=== PATIENT | female | born 1975 | race Caucasian/White ===

== ENCOUNTER → 2020-06-19 08:44 | Outpatient (BNVA) | payer BC, SELFPAY | PROVIDERS: Family Provider Family Medicine; PCP Family Medicine; Visit Provider Obstetrics & Gynecology | DX: D25.9 Leiomyoma of uterus, unspecified (principal); N83.201 Unspecified ovarian cyst, right side | CPT/HCPCS: 76830 ==

== ENCOUNTER 2020-06-23 09:18 | Outpatient (CLI) | payer BC, SELFPAY ==
--- NOTE | 2020-06-23 09:19 | MM_ITS ---
WS: [id number] Bilateral screening digital mammogram, 06/23/2020 Clinical Data: SCREENING Comparison: None. Findings: The breast parenchymal pattern shows heterogeneous density No spiculated masses or clustered calcific ations are seen. There are no secondary signs of carcinoma. MM/[id number] Impression: 1. Negative bilateral mammogram with no prior exam for review. 2. Recommend annual screening mammograms. BIRADS: 1-Negative FOLLOW UP: 1 Year Follow-up The CAD cargo checker was used.
== END 2020-06-23 09:19 | disposition home or self-care (01) ==
LOC: RADSHAW 09:18
PROVIDERS: PCP Family Medicine; Visit Provider Family Medicine
DX: Z12.31 Encounter for screening mammogram for malignant neoplasm of breast (principal)
CPT/HCPCS: 77067

== ENCOUNTER → 2020-07-06 16:25 | Outpatient (BNVA) | payer BC, SELFPAY | PROVIDERS: PCP Family Medicine; Visit Provider Obstetrics & Gynecology | DX: D25.1 Intramural leiomyoma of uterus (principal); N92.0 Excessive and frequent menstruation with regular cycle; N93.9 Abnormal uterine and vaginal bleeding, unspecified | CPT/HCPCS: 87635 ==

== ENCOUNTER 2020-07-12 09:09 | Observation (INO) | payer BC, SELFPAY ==
[2020-07-10 11:37] VITALS: BMI 33.0
--- NOTE | 2020-07-10 12:05 | P.ANESASSM_ITS ---
Pre-Anesthetic Assessment Pre-Anesthetic Assessment: Height/Weight: Height 1.78 m Weight 104.326 kg Preop Diagnosis: Abnormal uterine bleeding, uterine leiomyoma Proposed Procedure: Operation Date: 07/12/20 07:00 Proposed Procedures p Total Vaginal Hysterectomy 58426 N92.0 N93.9(Not Applicable) - Eliseo reyes MD Familial anesthetic complications: none Social: Social History: No alcohol and No tobacco Exam: Pre-Anes Outpt Exam: alert, oriented x 3, clear to auscultation bilaterally and regular rate & rhythm Airway: Cervical ROM: WNL MP: 3 Dentition: Other (misisng) CV/HEM: CV/HEM: HTN Metabolic: Metabolic: DM Anesthetic Plan: ASA status: 2 Anesthesia: General Risk of > 500 ml blood loss (7ml/kg in children): No PFSH Anesthesia PFSH: Surgical History H/O knee surgery S/P section Family History Grandmother Diabetes Grandfather Diabetes Hypertension Denies family history of Colon cancer Ovarian cancer Clotting disorder Heart disease Hypercholesteremia Breast cancer Bleeding disorder Uterine cancer Thyroid disease Stroke Social History (Updated 07/10/20 @ 08:40 by Denisse Saucedo RN) Smoking and tobacco status: never smoked Alcohol intake: current Alcohol intake frequency: holidays/special occasions only Alcohol type: wine and hard liquor Substance/Drug Use: never Female Reproductive History: Date of last menstrual period: 06/30/20 Data Anesthesia Cardiac Studies: No Data to Display
[2020-07-10 12:17] LABS: Basophils # 0.1 10^3/uL (0.0-0.1); Basophils % 0.8 %; Eosinophils # 0.2 10^3/uL (0.0-0.8); Eosinophils % 2.5 %; Hematocrit 43.1 % (37.0-47.0); Hemoglobin 13.9 g/dL (11.5-15.3); Lymphocytes # 1.6 10^3/uL (0.8-4.8); Lymphocytes % 26.5 %; Mean Corpuscular HGB Conc 32.3 g/dL (30.0-36.0); Mean Corpuscular Hemoglobin 27.4 pg (28.0-34.0); Mean Corpuscular Volume 84.8 fL (81-99); Mean Platelet Volume 11.2 fL (7.4-10.4); Monocytes # 0.3 10^3/uL (0.2-0.9); Monocytes % 5.2 %; Neutrophils # 3.87 10^3/uL (1.8-7.7); Neutrophils % 64.7 %; Nucleated Red Blood Cells % 0 %; Platelet Count 337 10^3/cmm (130-400); Red Blood Count 5.08 10^6/uL (4.1-5.3); Red Cell Distribution Width 12.5 % (12.1-15.1)
[2020-07-10 12:22] LABS: Add Urine Microscopic? NO; Charge for UA Resulting for Rev
[2020-07-10 12:40] LABS: Alanine Aminotransferase 10 U/L (0-33); Albumin Level 4.1 g/dL (3.5-5.2); Alkaline Phosphatase 67 IU/L (35-105); Anion Gap 11.5 (5-19); Aspartate Amino Transferase 17 U/L (0-32); Blood Urea Nitrogen 11 mg/dL (6-20); Calcium 9.7 mg/dL (8.5-10.5); Carbon Dioxide 25 mmol/L (22-29); Chloride 105 mmol/L (98-107); Globulin 2.4 g/dL (1.3-4.6); Glomerular Filtration Rate 108.6 mL/min (90-130); Glucose 173 mg/dL (65-115); Osmolality Calculated 290 mOsm/kg (285-295); Potassium 3.5 mmol/L (3.5-5.1); Sodium 138 mmol/L (136-145); Total Bilirubin 0.4 mg/dL (0.15-1.2); Total Protein 6.5 g/dL (6.6-8.7)
[2020-07-10 12:41] LABS: Urine Appearance Clear (CLEAR); Urine Color Yellow (Yellow)
[2020-07-10 12:42] LABS: Bilirubin Urine Neg (Negative); Blood Urine Neg (Negative); Glucose Urine UA 4+ (Normal); Ketones Urine 1+ (Negative); Leukocyte Esterase Urine Negative (Negative); Nitrate Urine Negative (Negative); Protein Urine Neg (Negative); Specific Gravity, Urine 1.015 (1.005-1.030); Urobilinogen Urine Norm (Negative); pH Urine 5 (5-7)
[2020-07-10 15:35] LABS: OR HCG Qualitative Urine Negative (Negative)
[2020-07-12] VITALS (14 sets, daily range): BP systolic 131–176; BP diastolic 51–92; PULSE 55–80; RESP 12–18; TEMP 36.2–36.8; O2SAT 94–100
[2020-07-12] MEDS: sodium chloride 0.9% 500 ML IV (06:41)
[2020-07-12] MEDS: vancomycin 1,000 MG in sodium chloride 0.9% 250 ML 250 MG IV (06:42)
[2020-07-12] MEDS: sodium chloride 0.9% 1,000 ML 30 ML IV (06:43)
[2020-07-12] MEDS: scopolamine 1.5 Patch 1 PATCH TRANSDERMA (06:43)
--- NOTE | 2020-07-12 06:48 | P.ANESUD_ITS ---
Pre-Anesthetic Update Pre-Anesthetic Assessment: Date of Surgery/Procedure: 07/12/20 Preop Elvia gnosis: Abnormal uterine bleeding, uterine leiomyoma Proposed Procedure: Operation Date: 07/12/20 07:00 Proposed Procedures p Total Vaginal Hysterectomy 44286 N92.0 N93.9(Not Applicable) - Eliseo Adam MD Any changes to Pre-Anesthetic Assessment?: No Last Intake: Intake Last Liquid Date 07/11/20 Last Liquid Time 20:00 Last Solid Date 07/11/20 Last Solid Time 20:00 Labs Last 48hrs: Laboratory Results - last 48 hr 07/10/20 07/10/20 07/10/20 11:40 11:40 11:40 WBC 6.0 RBC 5.08 Hgb 13.9 Hct 43.1 MCV 84.8 MCH 27.4 L MCHC 32.3 RDW 12.5 Plt Count 337 MPV 11.2 H Neut % (Auto) 64.7 Lymph % (Auto) 26.5 Brantley % (Auto) 5.2 Eos % (Auto) 2.5 Baso % (Auto) 0.8 Neut # (Auto) 3.87 Lymph # (Auto) 1.6 Brantley # (Auto) 0.3 Eos # (Auto) 0.2 Baso # (Auto) 0.1 Nucleated RBC % (a uto) 0 Nucleated RBCs # 0.0 Sodium 138 Potassium 3.5 Chloride 105 Carbon Dioxide 25 Anion Gap 11.5 BUN 11 Creatinine 0.6 GFR Calculation 108.6 Glucose 173 H Calculated Osmolal ity 290 Calcium 9.7 Total Bilirubin 0.4 AST 17 ALT 10 Alkaline Phosphata se 67 Total Protein 6.5 L Albumin 4.1 Globulin 2.4 Urine Color Urine Appearance Urine pH Ur Specific Gravit y Urine Protein Urine Glucose (UA) Urine Ketones Urine Blood Urine Nitrate Urine Bilirubin Urine Urobilinogen Ur Leukocyte Latha ase Urine HCG, Qual Blood Type A Positive Rho(D) Type Positive / 4+ Antibody Screen Negative 07/10/20 07/10/20 11:50 11:50 WBC RBC Hgb Hct MCV MCH MCHC RDW Plt Count MPV Neut % (Auto) Lymph % (Auto) Brantley % (Auto) Eos % (Auto) Baso % (Auto) Neut # (Auto) Lymph # (Auto) Brantley # (Auto) Eos # (Auto) Baso # (Auto) Nucleated RBC % (a uto) Nucleated RBCs # Sodium Potassium Chloride Carbon Dioxide Anion Gap BUN Creatinine GFR Calculation Glucose Calculated Osmolal ity Calcium Total Bilirubin AST ALT Alkaline Phosphata se Total Protein Albumin Globulin Urine Color Yellow Urine Appearance Clear Urine pH 5 Ur Specific Gravit y 1.015 Urine Protein Neg Urine Glucose (UA) 4+ H Urine Ketones 1+ H Urine Blood Neg Urine Nitrate Negative Urine Bilirubin Neg Urine Urobilinogen Norm Ur Leukocyte Latha ase Negative Urine HCG, Qual Negative Blood Type Rho(D) Type Antibody Screen Vitals: Temperature 97.8 F 07/12/20 06:44 Temperature Source Temporal Artery S can 07/12/20 06:44 Pulse Rate 55 L 07/12/20 06:44 Respiratory Rate 18 07/12/20 06:44 Blood Pressure 176/92 07/12/20 06:44 Blood Pressure Odalys n 120 07/12/20 06:44 Pulse Oximetry 97 07/12/20 06:44 Oxygen Delivery Me thod 07/12/20 06:44 Exam: Pre-Anes Outpt Exam: alert, oriented x 3, clear to auscultation bilaterally and regular rate & rhythm Cardiac Studies: No Data to Display
[2020-07-12 06:51] LABS: Glucose Point of Care 121 mg/dL (70-110)
--- NOTE | 2020-07-12 06:52 | W.PM.OPSUD ---
Surgery/Procedure H&P Update DATE OF PROCEDURE: July 12, 2020 DATE H&P PERFORMED: 07/10/20 H&P UPDATE INFORMATION: I have reviewed H&P completed within last 30 days, I have examined patient prior to procedure and No changes to prior documentation PREOP DIAGNOSIS: Abnormal uterine bleeding, uterine leiomyoma PLANNED PROCEDURE: Operation Date: 07/12/20 07:00 Proposed Procedures p Total Vaginal Hysterectomy 01799 N92.0 N93.9(Not Applicable) - lEiseo Adam MD
[2020-07-12] MEDS: levofloxacin-dextrose 5 % 500 MG/100 ML PREMIX 100 MG IV (06:54)
[2020-07-12 07:03] LABS: OR HCG Qualitative Urine Negative (Negative)
--- NOTE | 2020-07-12 08:46 | P.OP_ITS ---
Operative Report Date of procedure: July 12, 2020 Pre-op Diagnosis: Abnormal uterine bleeding, uterine leiomyoma Procedure Done: Total vaginal hysterectomy. Cystoscopy Specimens removed/disposition: Uterus Pathology: Uterus Surgeon: Eliseo Adam MD Anesthesia: General Estimated blood loss (mL): 50 IV fluids (mL): 700 Urine output (mL): 300 Complications: None Findings: Enlarged irregular uterus with large posterior fibroid Condition: stable Disposition: PACU Brief History: 45-year-old female with uterine fibroid Procedure: After informed consent and risks, benefits, indications and alternatives reviewed with the patient was taken to the operating room. The patient was placed in dorsal lithotomy position prepped, and draped in the usual sterile fashion. The pre-procedure timeout verifying the correct patient, procedure, site and side, could not requirements was performed and acknowledge by the OR team. A Dubon catheter was placed. A Bookwalter vaginal retractor wa s placed into the vagina in usual manner visualize the cervix. Cervix was grasped with a single tooth tenaculum and circumferentially infiltrated with Lige sure 1% Xylocaine with epinephrine. Then cervix was circumferentially incised with bovie and the bladder was dissected off the pubovesical cervical fascia anteriorly with a sponge stick and Metzenbaum scissors. The anterior peritoneal reflection was identified and the anterior cul-de-sac was entered sharply with Metzenbaum scissors. The same procedure was performed posteriorly and a posterior colpotomy was made through the posterior cul-de-sac space without difficulty and the posterior blade of the Bookwalter vaginal retractor was advanced posteriorly into the cul-de-sac. At this time, the left and right uterosacral ligaments were isolated and ligated with 0 Vicryl. The Enseal device was placed over the uterosacral ligaments on either side and was then used in a serial fashion up through the cardinal ligaments bilaterally cross-clamped, cut, and sealed with the Enseal device. Finally, the uterine arteries were cross-clamped, cut, sealed and ligated with the Enseal device. Hemostasis was assured. The broad ligaments were then serially clamped, sealed and cut with the Enseal device on both sides. Excellent hemostasis was visualized. Both cornua were clamped, sealed and cut with the Enseal device. Then the pedicles were then suture ligated with excellent hemostasis. The uterus was excised and submitted for pathologic evaluation. No other abnormalities were noted in the pelvic cavity. The patient was given indigo carmine IV. the peritoneum was then closed in a pursestring fashion with 0 Vicryl suture. The vaginal cuff angles were closed with [id number] #0 Vicryl suture on both sides and transfixed with the ipsilateral cardinal and uterosacral ligaments. The remainder of the vaginal cuff was closed with #0 Vicryl in a running locked fashion. At this time, instruments were removed from the vagina at hemostasis assured. Then the Dubon catheter was removed and cystoscope was inserted. The bladder was filled with sterile water. Complete evaluation of the bladder mucosa was performed noting no lacerations, dimpling, tears, bleeding of the mucosa or muscular layers. Both ureteral orifices were identified. Prompt excretion of blue urine from both ureteral orifices was noted. Cystoscope was withdrawn. Dubon catheter was then placed yielding clear amelia urine. A vaginal packing with Premarin cream was placed and the patient was taken out of dorsal lithotomy position and awakened from the general anesthesia. The patient tolerated the procedure well and was taken to the PACU recovery room in a stable condition. Sponge, lap, needle and instruments counts were correct x3.
--- NOTE | 2020-07-12 09:01 | P.PCN_ITS ---
PACU note PACU note: VSS, Good respiratory effort, report to FLATWORK PRESSER Post-Anesthesia Exam: awake
--- NOTE | 2020-07-12 09:01 | PM.PACU ---
PACU note PACU note: VSS, Good respiratory effort, report to COMMUNITY PROGRAM ASSISTANT Post-Anesthesia Exam: awake
--- NOTE | 2020-07-12 10:02 | PC.NURSE ---
Patient arrived from PACU at 0930. Patient transferred herself to bed from [facility]. Patient reports no pain and oriented to room including call light. Patient instructed not to get out of bed without assistance.
[2020-07-12] MEDS: fluticasone nasal spray 16gm Btl 1 SPRAY INTRANASAL (10:26)
[2020-07-12] MEDS: metformin 500 mg Tablet PO ×2 (10:26→18:03)
[2020-07-12] MEDS: multivitamin therapeutic Tablet 1 TAB PO (10:27)
[2020-07-12] MEDS: fluoxetine 20 mg Capsule PO (10:27)
[2020-07-12] MEDS: docusate sodium 100 mg Capsule PO ×2 (10:27→18:03)
[2020-07-12] MEDS: dextrose 5%-lactated ringers 1,000 ML 125 ML IV ×2 (10:32→18:03)
--- NOTE | 2020-07-12 10:32 | PC.NURSE ---
Patient already took metoprolol this morning prior to surgery. Not given.
[2020-07-12] MEDS: ketorolac 30 mg/mL INJ IVP ×2 (14:33→21:17)
--- NOTE | 2020-07-12 15:49 | ANE.PACU2 ---
Inpatient post-anesthesia follow up: Airway intact: Yes Vital signs: Temperature 98.2 F Pulse Rate 76 Respiratory Rate 17 Blood Pressure 169/79 Pulse Oximetry 97 Oxygen Delivery Me thod Room Air Oxygen Flow Rate 2 Fraction of Inspir ed Oxygen Hydration adequate: Yes Nausea and vomiting: No Pain level: 3 Mental status: Baseline
[2020-07-12] MEDS: metoprolol tartrate 25 mg Tablet PO (21:17)
[2020-07-12] MEDS: atorvastatin 40 mg Tablet 20 MG PO (21:17)
[2020-07-13 04:30] VITALS: BP 150/86; PULSE 87; RESP 16; O2SAT 98
[2020-07-13 05:01] LABS: Hematocrit 41.1 % (37.0-47.0); Hemoglobin 13.1 g/dL (11.5-15.3); Mean Corpuscular HGB Conc 31.9 g/dL (30.0-36.0); Mean Corpuscular Hemoglobin 27.3 pg (28.0-34.0); Mean Corpuscular Volume 85.6 fL (81-99); Mean Platelet Volume 10.9 fL (7.4-10.4); Platelet Count 258 10^3/cmm (130-400); Red Cell Distribution Width 12.5 % (12.1-15.1); White Blood Count 8.6 10^3/uL (4.0-10.0)
[2020-07-13] MEDS: fluoxetine 20 mg Capsule PO (08:19)
[2020-07-13] MEDS: docusate sodium 100 mg Capsule PO (08:19)
[2020-07-13] MEDS: ibuprofen 800 mg tablet PO (08:19)
[2020-07-13] MEDS: multivitamin therapeutic Tablet 1 TAB PO (08:19)
[2020-07-13] MEDS: metformin 500 mg Tablet PO (08:19)
[2020-07-13] MEDS: metoprolol tartrate 25 mg Tablet PO (08:30)
[2020-07-13] MEDS: fluticasone nasal spray 16gm Btl 1 SPRAY INTRANASAL (08:30)
[2020-07-13 10:18] VITALS: BP 133/76; PULSE 66; RESP 14; TEMP 36.8; O2SAT 96
--- NOTE | 2020-07-13 12:15 | P.DS_ITS ---
Discharge Providers [facility] Date of Admission: 07/12/20 09:09 Date of Discharge: 07/13/20 Attending Provider at Admission: Eliseo Adam MD Attending Provider at Discharge: Eliseo Adam MD Primary Care Provider: Blayne Redman MD Reason for Visit Reason for Visit: menorrhagia Hospital Course Hospital Course Mrs. Bender 45-year-old female with a history of abnormal uterine bleeding unresponsive to medical management and uterine leiomyoma admitted for planned total vaginal hysterectomy. The procedure was performed without complication. Overnight observation was uneventful. She is afebrile and hemodynamically stable. Tolerating diet well. Ambulating without difficulty. Passing flatus. Physical Exam Narrative: EXAM NARRATIVE: GA: Alert and oriented ?3. HEENT: WNL. Heart: Regular rate and rhythm. Lungs: Clear to auscultation bilaterally. Abdomen: Bowel sounds present. FIELD MANAGER: No bleeding. Extremities: No edema, no cyanosis, no calves pain. Urinary Catheter Management^: Dubon: Cath Placed During This Visit: yes, but has since been removed by the nurse Reason for Continuing Indwelling Catheter: Decision to DC Catheter Urinary Catheter Date of Insertion: 07/12/20 Urinary Catheter Time of Insertion: 07:25 Date Urinary Catheter Removed: 07/13/20 Time Urinary Catheter Discontinued: 06:30 Discharge Data Data Completed and Pending: Pending at discharge Category Date Time Status Pathology: Surgic al [PTH] Routine Pth 07/12/20 09:00 Received Labs from last 24 hours 07/13/20 04:45 WBC 8.6 RBC 4.80 Hgb 13.1 Hct 41.1 MCV 85.6 MCH 27.3 L MCHC 31.9 RDW 12.5 Plt Count 258 MPV 10.9 H Vitals: Last Vital Signs Temp 98.3 F 07/13/20 10:18 Pulse 66 07/13/20 10:18 Resp 14 07/13/20 10:18 BP 133/76 07/13/20 10:18 Pulse Ox 96 07/13/20 10:18 Discharge Plan Discharge Patient Disposition: Home Condition: Stable Prescriptions: New hydrocodone-acetaminophen 5-325 mg tablet 1 tab PO Q4H PRN (Reason: pain) Qty: 30 RF: 0 ibuprofen 800 mg tablet 800 mg PO TID PRN (Reason: pain) Qty: 60 RF: 0 acetaminophen 325 mg capsule 325 mg PO Q4H PRN (Reason: fever or postoperative pain) Qty: 60 RF: 0 Continued metformin 1,000 mg tablet 500 mg PO BID RF: 0 fluticasone propionate 50 mcg/actuation spray,suspension 1 spray intranasal DAILY RF: 0 metoprolol tartrate 25 mg tablet 25 mg PO BID RF: 0 Jardiance 10 mg tablet 10 mg PO DAILY RF: 0 atorvastatin 10 mg tablet 10 mg PO DAILY RF: 0 fluoxetine 20 mg capsule 20 mg PO DAILY RF: 0 multivitamin Tablet 1 tab PO DAILY RF: 0 Discharge Orders: Discharge Order (Routine); Ordered 07/13/20 Ordered By: Eliseo Adam Referrals: Eliseo Adam MD [Physician] - 07/24/20 11:15 am (Initial post op visit - 07/24/2020 at 11:15 6 week post op visit - 08/21/2020 at 11:00) Discharge Diet: Usual diet Discharge Activity: Increase activity as tolerated Patient Instructions: Vaginal Hysterectomy (DC), OB Discharge Report Activity Restrictions/Additional Instructions: 1. Please call [facility] on next working day to make your post-operative appointment in 2 weeks. 2. Please stay home until you come back to the clinic on first post-operative check up. 3. Please follow instructions on your medications CAREFULLY. 4. If you have abdominal incision, do not cover it unless dressing is necessary because of drainage. OK to shower, but avoid bath. Leave steri-strips until they fall off. If they are still on one week after surgery, you may remove them. 5. If you had vaginal surgery or vaginal repair, Dr. Adam may instruct you to take SITZ bath. 6. Yellow, blood tinged odorous vaginal discharge is usually normal after hysterectomy or vaginal surgeries. 7. No sexual intercourse, tampons, or douches until you are completely released from the post-operative care. 8. Avoid constipation by eating right and maybe using some Metamucil or Milk of Magnesia. 9. All prescription refills are given during the working hours. Please do no wait till it runs out. Call the clinic at [phone] before your medication runs out. The clinic will get in touch with your doctor to prescribe medications if necessary. 10. Please remain within 40 mile radius from our hospital because emergencies do happen now and then during the post-operative period. 11. If you have stairs at home, take one step at a time slowly and minimize the number of trips. It helps to stay in one floor for the next few days. No lifting except what you can lift by one hand until you are released from the post-operative care. 12. Driving is discouraged until you are well healed. It may be 3-4 weeks before you feel strong enough to drive. You should be able to turn and look through the rear window without pain and you should be able to push the brake pedal very hard without pain before you drive. No fast rules, but SAFETY should be your primary concern. DO NOT drive if you are on sedating medications such as narcotics. 13. Call the clinic (during working hours) to make urgent appointment or go to the Emergency room, if any of the following occurs: i. Vaginal bleeding becomes heavy, more than a period. ii. Incision becomes red and sore, or drains pus. iii. Your temperature is over 100.4 or you have chill. iv. IV site becomes red and swollen (a little ``knot?? is usually OK) v. Persistent nausea and vomiting vi. Persistent constipation or diarrhea vii. Rash or allergic reaction to medications. Discharge Attestations [facility] C[facility] Time Spent in Discharge Care*: greater than 30 min Coding Level of Care Code Acute Senior Software Test Engineer for Jordan Amezquita
[2020-07-13 12:36] VITALS: BP 117/75; PULSE 72; RESP 16; TEMP 37.1; O2SAT 98
== END 2020-07-13 12:45 | disposition home or self-care (01) ==
LOC: OBGYN 09:10
PROVIDERS: Anesthesiology; Admitting Provider Obstetrics & Gynecology; PCP Family Medicine; Visit Provider Obstetrics & Gynecology
PROC: (CPT 58260; principal; 2020-07-12 07:00)
DX: N93.9 Abnormal uterine and vaginal bleeding, unspecified (principal); D25.9 Leiomyoma of uterus, unspecified; I10 Essential (primary) hypertension; E11.9 Type 2 diabetes mellitus without complications; Z79.84 Long term (current) use of oral hypoglycemic drugs
CPT/HCPCS: 58260; 36415; 36416; 80053; 81003; 82962; 84703; 85025; 85027; 86850; 86900; 88307; 96365; G0378; J1885; J1956; J2405; J2704; J2710; J3010; J3370; J3490; J7030; J7040; J7050

== ENCOUNTER → 2020-08-09 16:42 | Outpatient (BNVA) | payer BC, SELFPAY | PROVIDERS: PCP Family Medicine; Visit Provider Obstetrics & Gynecology | DX: R30.9 Painful micturition, unspecified (principal) | CPT/HCPCS: 82947; 84315; 87086 ==

== ENCOUNTER → 2021-10-14 17:02 | Outpatient (BNVA) | payer BC, SELFPAY | PROVIDERS: PCP Family Medicine; Visit Provider Registered Nurse Neonatal Intensive Care | DX: Z20.822 Contact with and (suspected) exposure to COVID-19 (principal) | CPT/HCPCS: 87635 ==

== ENCOUNTER 2022-01-07 09:23 | Outpatient (CLI) | payer BC, SELFPAY ==
--- NOTE | 2022-01-07 09:27 | MM_ITS ---
WS: [id number] BILATERAL SCREENING DIGITAL TOMOSYNTHESIS MAMMOGRAM WITH CAD HISTORY: SCREENING COMPARISON: 06/23/2020 Bilateral CC and MLO views with tomosynthesis and synthetic mammography submitted. Computer aided det ection analyzed. Breast composition: The breasts are heterogeneously dense, which may obscure small masses. No suspici ous masses, microcalcifications or architectural distortion. MM/[place] [id number] IMPRESSION: BI-RADS: 1-Negative FOLLOW UP: 1 Year Follow-up
== END 2022-01-07 09:24 | disposition home or self-care (01) ==
LOC: RAD 09:24
PROVIDERS: PCP Family Medicine; Visit Provider Family Medicine
DX: Z12.31 Encounter for screening mammogram for malignant neoplasm of breast (principal)
CPT/HCPCS: 77063; 77067

== ENCOUNTER 2023-02-24 09:57 | Outpatient (CLI) | payer BC, SELFPAY ==
--- NOTE | 2023-02-24 10:11 | MM_ITS ---
WS: [id number] BILATERAL SCREENING DIGITAL TOMOSYNTHESIS MAMMOGRAM WITH CAD HISTORY: SCREENING COMPARISON: 01/07/2022 and 06/23/2020 Bilateral CC and MLO views with tomosynthesis and synthetic mammography submitted. Computer aided det ection analyzed. Breast composition: There are scattered areas of fibroglandular density. No suspicious masses, microc alcifications or architectural distortion. IMPRESSION: MM/[place] [id number] BI-RADS: 1-Negative FOLLOW UP: 1 Year Follow-up
== END 2023-02-24 09:58 | disposition home or self-care (01) ==
PROVIDERS: PCP Family Medicine; Visit Provider Family Medicine
DX: Z12.31 Encounter for screening mammogram for malignant neoplasm of breast (principal)
CPT/HCPCS: 77063; 77067

== ENCOUNTER 2024-04-26 12:59 | Outpatient (CLI) | payer BC, SELFPAY ==
--- NOTE | 2024-04-26 13:01 | MM_ITS ---
WS: [id number] BILATERAL 3D TOMOSYNTHESIS DIGITAL SCREENING MAMMOGRAPHY WITH CAD CLINICAL INFORMATION: SCREENING HISTORY: Screening mammogram. No current complaints. COMPARISON: 2022 TECHNIQUE: Bilateral CC and MLO views. FINDINGS: The breasts are composed of heterogeneous fibroglandular density tissue, which can limit the detectio n of small underlying mass lesions. No suspicious mass, asymmetry, calcifications, or architectural d istortion. No evidence of malignancy. Lucent centered calcification LEFT breast. MM/MM [facility] tomosynthesis [id number] IMPRESSION: DENSITY: The breasts are heterogeneously dense, which may obscure small masses. BI-RADS: 2 - Benign FOLLOW UP: 1 Year Follow-up Recommend return to annual screening mammography.
== END 2024-04-26 13:00 | disposition home or self-care (01) ==
LOC: RAD 13:00
PROVIDERS: PCP Family Medicine; Visit Provider Family Medicine
DX: Z12.31 Encounter for screening mammogram for malignant neoplasm of breast (principal); R92.333 Mammographic heterogeneous density, bilateral breasts; R92.1 Mammographic calcification found on diagnostic imaging of breast
CPT/HCPCS: 77063; 77067